=== PATIENT | female | born 1985 | race Caucasian/White ===

== ENCOUNTER 2016-08-30 20:06 | Emergency (ER) | payer OTHER ==
[~2016-08-30 20:06] MED LIST: ACET-704 PO; ALPR0.5T PO; DOXY100C2 PO; HYDR-971 PO; HYDR1TAB12 PO; IBUP200T43 PO; ONDA4TAB7 PO; PENI500T PO; RANI150T6 PO; TRAM-48 PO
[2016-08-30 20:45] VITALS: BP 127/72
[2016-08-30 22:22] LABS: BASO # 0.1 x10^3/uL (0.0-0.2); BASO % 1 % (0-3); EOS # 0.1 x10^3/uL (0.0-0.7); EOS % 2 % (0-3); HEMATOCRIT 37.7 % (36.0-47.0); HEMOGLOBIN 13.1 g/dL (12.0-15.5); LYMPH # 2.2 x10^3/uL (1.0-4.8); LYMPH % 33 % (24-48); MEAN CORPUSCULAR HEMOGLOBIN 32 pg (25-35); MEAN CORPUSCULAR HGB CONC 35 g/dL (31-37); MEAN CORPUSCULAR VOLUME 91 fL (79-100); MONO # 0.4 x10^3/uL (0.0-1.1); MONO % 6 % (0-9); NEUT # 3.8 x10^3uL (1.8-7.7); NEUT % 58 % (31-73); PLATELET COUNT 258 x10^3/uL (140-400); RED BLOOD COUNT 4.15 x10^6/uL (3.50-5.40); RED CELL DISTRIBUTION WIDTH 12.5 % (11.5-14.5); WHITE BLOOD COUNT 6.5 x10^3/uL (4.0-11.0)
[2016-08-30 22:24] LABS: CALCIUM 9.3 mg/dL (8.5-10.1); CREATININE 0.7 mg/dL (0.6-1.0); GFR 97.6; POTASSIUM 3.8 mmol/L (3.5-5.1)
--- NOTE | 2016-08-31 05:46 | ED.ADGEN ---
Past History Past Medical History: No Pertinent History Past Surgical History: Cholecystectomy, Other Smoking: Quit Less Than 1 Year Alcohol Use: None Drug Use: None Adult General Chief Complaint Chief Complaint Vaginal bleeding HPI HPI Patient is a 30-year-old female presents with vaginal bleeding. Patient states she was started vaginal bleeding starting 3 days ago with heavy vaginal bleeding earlier today and passed large clots prior to ED arrival. Reports feeling queasy and lightheaded. Denies chest pain shortness of breath, abdominal pain. Patient's last menstrual period was 3 weeks ago. Her periods have been regular and light. She states this evening at her symptoms feel like a heavy period. Patient had negative test earlier this week. No other acute symptoms or complaints. Review of Systems Review of Systems Review symptoms as per history of present illness. All other review symptoms are negative. Allergies Allergies Allergies Coded Allergies Type Severity Reaction Last Updated Verified Sulfa (Sulfonamide Antibiotics) Allergy Severe Anaphylaxis 05/23/15 Yes sulfamethoxazole Allergy Severe Anaphylaxis 05/23/15 Yes trimethoprim Allergy Severe Anaphylaxis 05/23/15 Yes hydrocodone Allergy Unknown Palpitations 04/14/16 Yes ibuprofen Allergy Unknown Palpitations 04/14/16 Yes Physical Exam Physical Exam Constitutional: Well developed, well nourished, no acute distress. HENT: Normocephalic, atraumatic, bilateral external ears normal, oropharynx moist, no oral exudates, nose normal. Eyes: PERRLA, EOMI, conjunctiva normal. Neck: Normal range of motion. Cardiovascular:Heart rate regular rhythm, no murmur. Lungs & Thorax: Bilateral breath sounds clear to auscultation. Abdomen: Bowel sounds normal, soft, no tenderness. Skin: Warm, dry, no erythema, no rash. Back: No tenderness, no CVA tenderness. Extremities: No tenderness. Neurologic: Alert and oriented X 3, normal motor function, normal sensory function, no focal deficits noted. Psychologic: Affect normal, judgement normal, mood normal. Current Patient Data Vital Signs Vital Signs Date Time Temp Pulse Resp B/P (MAP) Pulse Ox O2 Delivery O2 Flow Rate FiO2 08/30/16 20:45 98.5 75 20 100 Room Air Lab Results Laboratory Tests Test 08/30/16 21:53 White Blood Count 6.5 x10^3/uL (4.0-11.0) Red Blood Count 4.15 x10^6/uL (3.50-5.40) Hemoglobin 13.1 g/dL (12.0-15.5) Hematocrit 37.7 % (36.0-47.0) Mean Corpuscular Volume 91 fL (79-100) Mean Corpuscular Hemoglobin 32 pg (25-35) Mean Corpuscular Hemoglobin Concent 35 g/dL (31-37) Red Cell Distribution Width 12.5 % (11.5-14.5) Platelet Count 258 x10^3/uL (140-400) Neutrophils (%) (Auto) 58 % (31-73) Lymphocytes (%) (Auto) 33 % (24-48) Monocytes (%) (Auto) 6 % (0-9) Eosinophils (%) (Auto) 2 % (0-3) Basophils (%) (Auto) 1 % (0-3) Neutrophils # (Auto) 3.8 x10^3uL (1.8-7.7) Lymphocytes # (Auto) 2.2 x10^3/uL (1.0-4.8) Monocytes # (Auto) 0.4 x10^3/uL (0.0-1.1) Eosinophils # (Auto) 0.1 x10^3/uL (0.0-0.7) Basophils # (Auto) 0.1 x10^3/uL (0.0-0.2) Maternal Serum HCG Beta Subunit 1 mIU/mL (0-6) Sodium Level 141 mmol/L (136-145) Potassium Level 3.8 mmol/L (3.5-5.1) Chloride Level 104 mmol/L (98-107) Carbon Dioxide Level 29 mmol/L (21-32) Anion Gap 8 (6-14) Blood Urea Nitrogen 8 mg/dL (7-20) Creatinine 0.7 mg/dL (0.6-1.0) Estimated GFR (Cockcroft-Gault) 97.6 Glucose Level 89 mg/dL (70-99) Calcium Level 9.3 mg/dL (8.5-10.1) EKG EKG [] Radiology/Procedures Radiology/Procedures [] Course & Med Decision Making Course & Med Decision Making Pertinent Labs and Imaging studies reviewed. (See chart for details) [Patient's abdomen/pelvis nontender on evaluation. Vital signs are stable. Lab work is reassuring. Patient states vaginal bleeding has improved. Recommendations are watchful waiting and MANIFOLD OPERATOR follow up. Return precautions reviewed.] Final Impression Final Impression [1 dysfunctional uterine bleeding] Problems: Dragon Disclaimer Dragon Disclaimer This electronic medical record was generated, in whole or in part, using a voice recognition dictation system. IRIS COMBS DO Aug 31, 2016 05:46
== END 2016-08-30 22:55 | disposition home or self-care (01) ==
LOC: ER 20:06
DX: N93.8 Other specified abnormal uterine and vaginal bleeding (principal); F17.200 Nicotine dependence, unspecified, uncomplicated; Z88.2 Allergy status to sulfonamides; Z88.1 Allergy status to other antibiotic agents; Z88.6 Allergy status to analgesic agent; Z88.5 Allergy status to narcotic agent
CPT/HCPCS: 36415; 80048; 84702; 85027; 99284

== ENCOUNTER 2016-09-17 16:18 | Emergency (ER) | payer OTHER ==
[2016-09-17 16:33] VITALS: BP 119/73
--- NOTE | 2016-09-17 16:46 | PHYS DOC ---
General Chief Complaint: CHEST PAIN Stated Complaint: CHEST PAIN Time Seen by MD: 16:25 Source: patient Exam Limitations: no limitations Problems: History of Present Illness Initial Comments Pt is 30/F to ED c/o drug reaction. Pt states that she broke a tooth last night and found a tylenol #3 prescription that had been written her in the past. She says she took one tablet on an empty stomach one hour prior to ED arrival. After about 20 minutes she says she developed severe epigastric pain radiating to her back with nausea and severe anxiety. She says she has had reactions like this in the past from ibuprofen and hydrocodone so she lists them as allergies. She says she hasn't taken Tylenol 3 before and wasn't aware it was similar to hydrocodone. She denies history of facial swelling/sob related to these meds in past, she denies sob/gallegos/dysphagia currently. On arrival she is crying she is writhing as if in severe pain exclaiming that she feels like she is going to . History and physical is difficult due to the patient's agitation. Despite her symptoms and physical activity her ED vital signs: 97.6, 67, 16, 119/73, 98% on room air Timing/Duration: 1/2 hour Severity: severe Modifying Factors: worse with medication Associated Symptoms: chest pain, nausea/vomiting, other Allergies: Coded Allergies: Sulfa (Sulfonamide Antibiotics) (Verified Allergy, Severe, Anaphylaxis, ) sulfamethoxazole (Verified Allergy, Severe, Anaphylaxis, 05/23/15) trimethoprim (Verified Allergy, Severe, Anaphylaxis, 05/23/15) hydrocodone (Verified Allergy, Unknown, Palpitations, 04/14/16) ibuprofen (Verified Allergy, Unknown, Palpitations, 04/14/16) Past Medical History Medical History: no pertinent history, other Surgical History: noncontributory, cholecystectomy (breast) Social History Smoker: cigarettes Alcohol: occasionally Drugs: none Review of Systems Constitutional: denies chills, denies diaphoresis, denies fever, denies malaise EENTM: see HPI Respiratory: see HPI, denies cough, denies shortness of breath, denies wheezing Cardiovascular: see HPI, denies palpitations, denies syncope Gastrointestinal: abdominal pain, denies diarrhea, nausea, denies vomiting Musculoskeletal: denies back pain, denies joint swelling, denies neck pain Psychiatric/Neurological: denies headache, denies numbness, denies paresthesia Physical Exam General Appearance: WD/WN, moderate distress Eyes: bilateral eye normal inspection, bilateral eye PERRL, bilateral eye EOMI Ear, Nose, Throat: hearing grossly normal, normal ENT inspection, normal pharynx Neck: non-tender, supple Respiratory: normal breath sounds, no respiratory distress Cardiovascular: normal peripheral pulses, regular rate, rhythm Gastrointestinal: non tender, soft Back: no CVA tenderness, no vertebral tenderness Extremities: non-tender, normal inspection Neurologic/Psychiatric: radio message router II-XII nml as tested, no motor/sensory deficits, alert, oriented x 3, other (extremely anxious and agitated, exclaiming that she' s going to ) Skin: normal color, warm/dry Orders, Labs, Meds EKG: NSR 62 bpm, mild T flattening no STEMI criteria. Interpreted by me. 1733: Pt rechecked, she is feeling much better after solumedrol/fentanyl/ ativan. Reassuring workup, K+ 3.1 (40meq given PO) I discussed GI intolerance to medications and the likelihood that she should seek alternatives other than opiates in the future. I discussed hypokalemia and its treatment and need for recheck. Patient expressed agreement and understanding with the treatment plan. Departure Time of Disposition: 17:34 Disposition: 01 HOME, SELF-CARE Diagnosis: adverse medication reaction, hypokalemia Condition: IMPROVED Patient Instructions: Drug Reaction, GI Intolerance, Hypokalemia Additional Instructions: Avoid codeine and other medications listed on your drug allergy list. Aggressive hydration with gatorade, water. Multivitamin daily. Eat one banana twice daily until doctor follow up. Rx: KCL 20 meq, take one every 8 hours for two days. Follow up with your doctor for potassium recheck in 1-2 days. Return to ED with new or changing symptoms. CORETTA FUENTES DO Sep 17, 2016 16:46
[2016-09-17 16:54] LABS: BASO # 0.1 x10^3/uL (0.0-0.2); BASO % 1 % (0-3); EOS # 0.2 x10^3/uL (0.0-0.7); EOS % 2 % (0-3); HEMATOCRIT 37.5 % (36.0-47.0); HEMOGLOBIN 12.8 g/dL (12.0-15.5); LYMPH # 2.9 x10^3/uL (1.0-4.8); LYMPH % 32 % (24-48); MEAN CORPUSCULAR HEMOGLOBIN 31 pg (25-35); MEAN CORPUSCULAR HGB CONC 34 g/dL (31-37); MEAN CORPUSCULAR VOLUME 91 fL (79-100); MONO # 0.6 x10^3/uL (0.0-1.1); MONO % 7 % (0-9); NEUT # 5.2 x10^3uL (1.8-7.7); NEUT % 58 % (31-73); PLATELET COUNT 276 x10^3/uL (140-400); RED BLOOD COUNT 4.12 x10^6/uL (3.50-5.40); RED CELL DISTRIBUTION WIDTH 12.6 % (11.5-14.5)
[2016-09-17] MEDS ORDERED: methylPREDNISolone SOD SUCC PF 125 MG/2 ML VIAL. IV ONE (17:00)
[2016-09-17] MEDS ORDERED: ONDANSETRON PF 4 MG/2 ML VIAL. IV ONE (17:00)
[2016-09-17] MEDS ORDERED: fentaNYL PF 100 MCG/2 ML VIAL IV ONE (17:00)
[2016-09-17] MEDS ORDERED: LORazepam 2 MG/ML VIAL IV ONE (17:00)
[2016-09-17 17:02] LABS: ALBUMIN 4.3 g/dL (3.4-5.0); ALBUMIN/GLOBULIN RATIO 1.5 (1.0-1.7); CALCIUM 8.9 mg/dL (8.5-10.1); CREATININE 0.8 mg/dL (0.6-1.0); GFR 83.7; POTASSIUM 3.1 mmol/L (3.5-5.1); TOTAL BILIRUBIN 0.5 mg/dL (0.2-1.0); TOTAL PROTEIN 7.2 g/dL (6.4-8.2)
[2016-09-17] MEDS ORDERED: POTASSIUM CHLORIDE 20 MEQ/15 ML ORAL LIQUID. PO ONE (17:45)
--- NOTE | 2016-09-19 07:01 | EKG ---
[address] [address] Test Date: 2016-09-17 Test Time: 16:26:31 Pat Name: FRANCESCO WHITEHEAD Department: Room: Gender: F Retail Associate: : 1985 Requested By: CORETTA FUENTES Order Number: [id number] Reading MD: Measurements Intervals [place] Rate: 62 P: 58 ME: 210 QRS: 62 QRSD: 90 T: 31 QT: 412 QTc: 420 Interpretive Statements SINUS RHYTHM QRS(T) CONTOUR ABNORMALITY CONSIDER ANTEROLATERAL MYOCARDIAL DAMAGE RI6.01 Unconfirmed report No previous ECG available for comparison
== END 2016-09-17 17:45 | disposition home or self-care (01) ==
LOC: ER 16:18
DX: T39.1X5A Adverse effect of 4-Aminophenol derivatives, initial encounter (principal); E87.6 Hypokalemia; F17.210 Nicotine dependence, cigarettes, uncomplicated; Z88.2 Allergy status to sulfonamides; Z88.1 Allergy status to other antibiotic agents; Z88.6 Allergy status to analgesic agent; Y92.89 Other specified places as the place of occurrence of the external cause
CPT/HCPCS: 36415; 80053; 85025; 96374; 96375; 99285; J2060; J2405; J2930; J3010

== ENCOUNTER 2017-02-07 12:24 | Emergency (ER) | payer OTHER ==
[~2017-02-07] VITALS: Ht 170.2 cm; Wt 67.1 kg
[~2017-02-07 12:24] MED LIST changes: -IBUP200T43 PO; +IBUP200T44 PO
[2017-02-07] MEDS ORDERED: IV NORMAL SALINE 1,000ML 1,000 ML IV SCH (12:50)
[2017-02-07 13:20] LABS: BASO # 0.1 x10^3/uL (0.0-0.2); BASO % 2 % (0-3); EOS # 0.1 x10^3/uL (0.0-0.7); EOS % 3 % (0-3); HEMATOCRIT 36.5 % (36.0-47.0); HEMOGLOBIN 12.6 g/dL (12.0-15.5); LYMPH # 1.4 x10^3/uL (1.0-4.8); LYMPH % 30 % (24-48); MEAN CORPUSCULAR HEMOGLOBIN 31 pg (25-35); MEAN CORPUSCULAR HGB CONC 35 g/dL (31-37); MEAN CORPUSCULAR VOLUME 91 fL (79-100); MONO # 0.4 x10^3/uL (0.0-1.1); MONO % 8 % (0-9); NEUT # 2.7 x10^3uL (1.8-7.7); NEUT % 58 % (31-73); PLATELET COUNT 266 x10^3/uL (140-400); RED BLOOD COUNT 4.04 x10^6/uL (3.50-5.40); RED CELL DISTRIBUTION WIDTH 12.7 % (11.5-14.5); WHITE BLOOD COUNT 4.7 x10^3/uL (4.0-11.0)
[2017-02-07 13:34] LABS: ALBUMIN 4.2 g/dL (3.4-5.0); ALBUMIN/GLOBULIN RATIO 1.4 (1.0-1.7); CALCIUM 9.1 mg/dL (8.5-10.1); CREATININE 0.6 mg/dL (0.6-1.0); GFR 115.9; POTASSIUM 3.7 mmol/L (3.5-5.1); TOTAL BILIRUBIN 0.2 mg/dL (0.2-1.0); TOTAL PROTEIN 7.2 g/dL (6.4-8.2)
[2017-02-07 13:35] LABS: BACTERIA,URINE 0 /HPF (0-FEW); BILIRUBIN,URINE NEG (NEG); CLARITY,URINE HAZY; COLOR,URINE STRAW; GLUCOSE,URINE NEG (NEG); NITRITE,URINE NEG (NEG); RBC,URINE 0 /HPF (0-2); SQUAMOUS EPITHELIAL CELL,UR OCC /LPF; UROBILINOGEN,URINE 0.2 mg/dL (0.2 mg/dL); WBC,URINE 0 /HPF (0-4)
--- NOTE | 2017-02-07 13:49 | RAD ---
Ultrasound pelvis on 04/24/2017 Indication: History of ovarian cyst with left-sided abdominal pain. Comparison: CT abdomen/pelvis 04/01/2015 Technique: Multiple sonographic images of the pelvis were obtained utilizing transabdominal and transvaginal imaging. Grayscale, color Doppler and spectral waveform analysis were utilized. Findings: There is measures 7.5 x 5.6 x 4.0 cm. Endometrium is within normal limits measuring 7 mm. Junctional zone appears normal. No suspicious uterine masses are identified. The right ovary measures 3.2 x 2.1 x 1.8 cm and is within normal limits. Arterial and venous waveform are identified at the time of imaging. The left ovary measures 3.9 x 2.1 x 2.0 cm. Follicles are identified within the left ovary measuring up to 1.5 cm. No suspicious adnexal mass. Arterial and venous waveform are identified at the time of imaging. No free fluid is identified within the pelvis. Impression: Nonenlarged ovaries with perfusion noted bilaterally at the time of imaging.
[2017-02-07 13:55] LABS: U PREG PATIENT NEGATIVE (NEG)
[2017-02-07] MEDS ORDERED: KETOROLAC 30 MG/ML VIAL. IV ONE (14:00)
[2017-02-07] MEDS ORDERED: TRAM-48 PO (14:37)
--- NOTE | 2017-02-07 14:37 | PHYS DOC ---
Past History Past Medical History: No Pertinent History Past Surgical History: Cholecystectomy, Other Smoking: Quit Less Than 1 Year Alcohol Use: None Drug Use: None Adult General Chief Complaint Chief Complaint: ABDOMINAL PAIN HPI HPI 31-year-old male patient complaining of left lower quadrant pain for one week as a sharp pain with radiation to left side of her abdomen and back patient complaining of LEFT-sided of her abdomen since yesterday and nausea without vomiting. Patient complaining of one or 2 episodes of diarrhea a day for the last 4 days after she had episodes of constipation. Patient states she was told that she had ovarian cyst and had an appointment with a "ovarian specialist" on 02/09/17. Patient denies urinary symptom and states her LMP was 5 days ago. Review of Systems Review of Systems Constitutional: Denies fever or chills [] Eyes: Denies change in visual acuity, redness, or eye pain [] HENT: Denies nasal congestion or sore throat [] Respiratory: Denies cough or shortness of breath [] Cardiovascular: No additional information not addressed in HPI [] GI: Reports abdominal pain, nausea, diarrhea [] : Denies dysuria or hematuria [] Musculoskeletal: Denies back pain or joint pain [] Integument: Denies rash or skin lesions [] Neurologic: Denies headache, focal weakness or sensory changes [] Endocrine: Denies polyuria or polydipsia [] All other systems were reviewed and found to be within normal limits, except as documented in this note. Current Medications Current Medications Current Medications Medications (Trade) Dose Ordered Sig/[place] Start Time Stop Time Status Last Admin Dose Admin Ketorolac Tromethamine (Toradol) 30 mg 1X ONCE 02/07/17 14:00 02/07/17 14:02 DC 02/07/17 14:14 30 MG Sodium Chloride 1,000 ml @ 1,000 mls/hr Q1H 02/07/17 12:50 02/07/17 13:49 DC 02/07/17 13:51 1,000 MLS/HR Allergies Allergies Allergies Coded Allergies Type Severity Reaction Last Updated Verified Sulfa (Sulfonamide Antibiotics) Allergy Severe Anaphylaxis 05/23/15 Yes sulfamethoxazole Allergy Severe Anaphylaxis 05/23/15 Yes trimethoprim Allergy Severe Anaphylaxis 05/23/15 Yes hydrocodone Allergy Unknown Palpitations 04/14/16 Yes ibuprofen Allergy Unknown Palpitations 3/10/17 Yes Physical Exam Physical Exam Constitutional: Well developed, well nourished, mild distress, non-toxic appearance. [] HENT: Normocephalic, atraumatic, bilateral external ears normal, oropharynx moist, no oral exudates, nose normal. [] Eyes: PERRLA, EOMI, conjunctiva normal, no discharge. [] Neck: Normal range of motion, no tenderness, supple, no stridor. [] Cardiovascular:Heart rate regular rhythm, no murmur [] Lungs & Thorax: Bilateral breath sounds clear to auscultation [] Abdomen: Bowel sounds normal, soft, no tenderness, no masses, no pulsatile masses, no abdominal, no wall defect or hernia. [] Skin: Warm, dry, no erythema, no rash. [] Back: No tenderness, no CVA tenderness. [] Extremities: No tenderness, no cyanosis, no clubbing, ROM intact, no edema. [] Neurologic: Alert and oriented X 3, normal motor function, normal sensory function, no focal deficits noted. [] Psychologic: Affect normal, judgement normal, mood normal. [] Current Patient Data Lab Results Laboratory Tests Test 02/07/17 13:00 White Blood Count 4.7 x10^3/uL (4.0-11.0) Red Blood Count 4.04 x10^6/uL (3.50-5.40) Hemoglobin 12.6 g/dL (12.0-15.5) Hematocrit 36.5 % (36.0-47.0) Mean Corpuscular Volume 91 fL (79-100) Mean Corpuscular Hemoglobin 31 pg (25-35) Mean Corpuscular Hemoglobin Concent 35 g/dL (31-37) Red Cell Distribution Width 12.7 % (11.5-14.5) Platelet Count 266 x10^3/uL (140-400) Neutrophils (%) (Auto) 58 % (31-73) Lymphocytes (%) (Auto) 30 % (24-48) Monocytes (%) (Auto) 8 % (0-9) Eosinophils (%) (Auto) 3 % (0-3) Basophils (%) (Auto) 2 % (0-3) Neutrophils # (Auto) 2.7 x10^3uL (1.8-7.7) Lymphocytes # (Auto) 1.4 x10^3/uL (1.0-4.8) Monocytes # (Auto) 0.4 x10^3/uL (0.0-1.1) Eosinophils # (Auto) 0.1 x10^3/uL (0.0-0.7) Basophils # (Auto) 0.1 x10^3/uL (0.0-0.2) Urine Collection Type Unknown Urine Color Straw Urine Clarity Hazy Urine pH 6.5 Urine Specific [place] <=1.005 Urine Protein Neg (NEG-TRACE) Urine Glucose (UA) Neg mg/dL (NEG) Urine Ketones (Stick) Neg mg/dL (NEG) Urine Blood Neg (NEG) Urine Nitrite Neg (NEG) Urine Bilirubin Neg (NEG) Urine Urobilinogen Dipstick 0.2 mg/dL (0.2 mg/dL) Urine Leukocyte Esterase Neg (NEG) Urine RBC 0 /HPF (0-2) Urine WBC 0 /HPF (0-4) Urine Squamous Epithelial Cells Occ /LPF Urine Bacteria 0 /HPF (0-FEW) Urine Test Negative (NEG) Sodium Level 142 mmol/L (136-145) Potassium Level 3.7 mmol/L (3.5-5.1) Chloride Level 105 mmol/L (98-107) Carbon Dioxide Level 28 mmol/L (21-32) Anion Gap 9 (6-14) Blood Urea Nitrogen 7 mg/dL (7-20) Creatinine 0.6 mg/dL (0.6-1.0) Estimated GFR (Cockcroft-Gault) 115.9 BUN/Creatinine Ratio 12 (6-20) Glucose Level 87 mg/dL (70-99) Calcium Level 9.1 mg/dL (8.5-10.1) Total Bilirubin 0.2 mg/dL (0.2-1.0) Aspartate Amino Transferase (AST) 10 U/L (15-37) L Alanine Aminotransferase (ALT) 17 U/L (14-59) Alkaline Phosphatase 66 U/L (46-116) Total Protein 7.2 g/dL (6.4-8.2) Albumin 4.2 g/dL (3.4-5.0) Albumin/Globulin Ratio 1.4 (1.0-1.7) Lipase 92 U/L (73-393) EKG EKG [] Radiology/Procedures Radiology/Procedures [] Course & Med Decision Making Course & Med Decision Making Pertinent Labs and Imaging studies reviewed. (See chart for details) Evaluation of patient in ER showed 31-year-old female patient with complaining of abdominal pain for 1 week and episodes of nausea and diarrhea. Patient had unremarkable physical exam and labs and pelvic ultrasound but she was not convinced with normal test results and states she T something is wrong with her. I offered a CT of abdomen and pelvis but patient decided to leave and follow with her appointment on February 09. [] Dragon Disclaimer Dragon Disclaimer This electronic medical record was generated, in whole or in part, using a voice recognition dictation system. Departure Departure: Impression: Primary Impression: Left lower quadrant pain Additional Impression: Viral gastroenteritis Disposition: HOME, SELF-CARE (At 1425) Condition: IMPROVED Referrals: ALISON MORRISON DO, [facility] (PCP) Patient Instructions: Abdominal Pain, Viral Gastroenteritis Additional Instructions: Take plenty of liquids Follow-up with your physician as a scheduled on 02/09/17 Return to emergency room as needed Scripts Tramadol Hcl (ULTRAM) 50 Mg Tablet 50 MG PO PRN Q6HRS Y for PAIN, #14 TAB Prov: ARIAN LVOE MD 02/07/17 Problem Qualifiers ARIAN LOVE MD Feb 07, 2017 14:37
[2017-02-07 15:26] VITALS: BP 138/83
== END 2017-02-07 14:40 | disposition home or self-care (01) ==
LOC: ER 12:24
DX: A08.4 Viral intestinal infection, unspecified (principal); Z87.891 Personal history of nicotine dependence; Z90.49 Acquired absence of other specified parts of digestive tract; Z88.2 Allergy status to sulfonamides; Z88.1 Allergy status to other antibiotic agents; Z88.6 Allergy status to analgesic agent; Z88.5 Allergy status to narcotic agent
CPT/HCPCS: 36415; 76830; 76856; 80053; 81001; 81025; 83690; 85025; 96361; 96374; 99285; J1885; J7030

== ENCOUNTER 2017-08-30 12:07 | Emergency (ER) | payer OTHER ==
[~2017-08-30] VITALS: Ht 165.1 cm; Wt 58.1 kg
[~2017-08-30 12:07] MED LIST changes: +RANI150T21 PO; -RANI150T6 PO
[2017-08-30 12:10] VITALS: BP 115/65
[2017-08-30 12:46] LABS: CLARITY,URINE CLOUDY; COLOR,URINE STRAW; GLUCOSE,URINE NEG (NEG)
[2017-08-30 12:47] LABS: BACTERIA,URINE 0 /HPF (0-FEW); BILIRUBIN,URINE NEG (NEG); NITRITE,URINE NEG (NEG); RBC,URINE >40 /HPF (0-2); SQUAMOUS EPITHELIAL CELL,UR OCC /LPF; UROBILINOGEN,URINE 0.2 mg/dL (0.2 mg/dL); WBC,URINE 0 /HPF (0-4)
[2017-08-30] MEDS ORDERED: FERR325T14 PO (13:20)
[2017-08-30] MEDS ORDERED: NAPR-683 PO (13:20)
--- NOTE | 2017-08-30 13:20 | PHYS DOC ---
Past History Past Medical History: No Pertinent History Past Surgical History: No Surgical History Smoking: Non-smoker, Quit Less Than 1 Year Alcohol Use: None Drug Use: None Adult General Chief Complaint Chief Complaint: VAGINAL BLEEDING HPI HPI 31-year-old female patient A1 states she had a normal menstruation that finished 2 weeks ago and she started to have vaginal bleeding 5 days ago as a heavy bleeding with passing blood clots and lower abdominal cramping pain intermittently during the last 5 days. Patient complaining of mild dizziness without palpitation, shortness of breath. Patient denies using contraception. Patient states she has appointment with her MEDIA SERVICES DIRECTOR tomorrow but was recommended to come to ER if she has heavy bleeding. Review of Systems Review of Systems Constitutional: Denies fever or chills [] Eyes: Denies change in visual acuity, redness, or eye pain [] HENT: Denies nasal congestion or sore throat [] Respiratory: Denies cough or shortness of breath [] Cardiovascular: No additional information not addressed in HPI [] GI: Denies abdominal pain, nausea, vomiting, bloody stools or diarrhea [] : Denies dysuria or hematuria [] Musculoskeletal: Denies back pain or joint pain [] Integument: Denies rash or skin lesions [] Neurologic: Denies headache, focal weakness or sensory changes [] Endocrine: Denies polyuria or polydipsia [] All other systems were reviewed and found to be within normal limits, except as documented in this note. Allergies Allergies Allergies Coded Allergies Type Severity Reaction Last Updated Verified Sulfa (Sulfonamide Antibiotics) Allergy Severe Anaphylaxis 05/23/15 Yes sulfamethoxazole Allergy Severe Anaphylaxis 05/23/15 Yes trimethoprim Allergy Severe Anaphylaxis 05/23/15 Yes codeine Allergy Intermediate GI INTOLERANCE/ANXIETY 07/30/17 Yes hydrocodone Allergy Intermediate Palpitations 07/30/17 Yes ibuprofen Allergy Intermediate Palpitations 07/30/17 Yes Physical Exam Physical Exam Constitutional: Well developed, well nourished, no acute distress, non-toxic appearance. [] HENT: Normocephalic, atraumatic, bilateral external ears normal, oropharynx moist, no oral exudates, nose normal. [] Eyes: PERRLA, EOMI, conjunctiva normal, no discharge. [] Neck: Normal range of motion, no tenderness, supple, no stridor. [] Cardiovascular:Heart rate regular rhythm, no murmur [] Lungs & Thorax: Bilateral breath sounds clear to auscultation [] Abdomen: Bowel sounds normal, soft, no tenderness, no masses, no pulsatile masses. Vaginal exam with present of swim instructor showed normal external genital, mild to moderate vaginal bleeding with few small clots, no adnexal tenderness or palpable mass [] Skin: Warm, dry, no erythema, no rash. [] Back: No tenderness, no CVA tenderness. [] Extremities: No tenderness, no cyanosis, no clubbing, ROM intact, no edema. [] Neurologic: Alert and oriented X 3, normal motor function, normal sensory function, no focal deficits noted. [] Psychologic: Affect normal, judgement normal, mood normal. [] Current Patient Data Vital Signs Vital Signs Date Time Temp Pulse Resp B/P (MAP) Pulse Ox O2 Delivery O2 Flow Rate FiO2 08/30/17 12:10 75 22 100 Room Air Lab Results Laboratory Tests Test 08/30/17 11:46 08/30/17 12:20 POC Urine HCG, Qualitative hcg negative (Negative) Urine Collection Type Unknown Urine Color Straw Urine Clarity Cloudy Urine pH 6.5 Urine Specific [place] 1.010 Urine Protein Neg (NEG-TRACE) Urine Glucose (UA) Neg mg/dL (NEG) Urine Ketones (Stick) Neg mg/dL (NEG) Urine Blood Large (NEG) Urine Nitrite Neg (NEG) Urine Bilirubin Neg (NEG) Urine Urobilinogen Dipstick 0.2 mg/dL (0.2 mg/dL) Urine Leukocyte Esterase Neg (NEG) Urine RBC >40 /HPF (0-2) Urine WBC 0 /HPF (0-4) Urine Squamous Epithelial Cells Occ /LPF Urine Bacteria 0 /HPF (0-FEW) EKG EKG [] Radiology/Procedures Radiology/Procedures [] Course & Med Decision Making Course & Med Decision Making Pertinent Labs reviewed. (See chart for details) Evolution of patient in ER showed 32-year-old male patient with complaining of heavy vaginal bleeding intermittently for the last 5 days. Patient had unremarkable physical exam without Cartia and pallor. Patient didn't want to have blood test or ultrasound wanted to follow-up with her MEDIA SERVICES DIRECTOR tomorrow. Dragon Disclaimer Dragon Disclaimer This electronic medical record was generated, in whole or in part, using a voice recognition dictation system. Departure Departure: Impression: Primary Impression: Abnormal vaginal bleeding Additional Impression: Menometrorrhagia Disposition: HOME, SELF-CARE (at 1317) Condition: STABLE Referrals: ALISON MORRISON DO, [facility] (PCP) Patient Instructions: Abnormal Uterine Bleeding Additional Instructions: Drink plenty of liquids Follow-up with your MEDIA SERVICES DIRECTOR as scheduled tomorrow Return to ER if not getting better Scripts Naproxen (NAPROSYN) 500 Mg Tablet 1 TAB PO BID, #20 TAB Prov: ARIAN LOVE MD 08/30/17 Ferrous Sulfate (FERROUS SULFATE) 325 Mg Tablet 1 TAB PO BID, #60 TAB 3 Refills Prov: ARIAN LOVE MD 08/30/17 Problem Qualifiers ARIAN LOVE MD Aug 30, 2017 13:20
== END 2017-08-30 13:30 | disposition home or self-care (01) ==
LOC: ER 12:07
DX: N92.1 Excessive and frequent menstruation with irregular cycle (principal); Z87.891 Personal history of nicotine dependence; Z88.2 Allergy status to sulfonamides; Z88.1 Allergy status to other antibiotic agents; Z88.5 Allergy status to narcotic agent; Z88.6 Allergy status to analgesic agent
CPT/HCPCS: 81001; 81025; 99283

== ENCOUNTER 2018-04-20 17:44 | Emergency (ER) | payer OTHER ==
[~2018-04-20] VITALS: Ht 165.1 cm; Wt 71.4 kg
[2018-04-20 17:44] VITALS: BP 116/67
[~2018-04-20 17:44] MED LIST changes: +FERR325T14 PO; +HYDR-3165 PO; -HYDR-971 PO; -HYDR1TAB12 PO; +HYDR1TAB13 PO; +NAPR-683 PO
--- NOTE | 2018-04-20 18:01 | EKG ---
[address] [address] Test Date: 2018-04-20 Test Time: 17:54:41 Pat Name: FRANCESCO WHITEHEAD Department: Room: Gender: F Sales Solutions Associate: GERHARD : 1985 Requested By: MARTINA HUA Order Number: [id number] Reading MD: Buddy Plummer MD Measurements Intervals [place] Rate: 65 P: 65 DC: 190 QRS: 62 QRSD: 90 T: 31 QT: 402 QTc: 419 Interpretive Statements SINUS RHYTHM Electronically Signed On 04-25-2018 15:03:26 CDT by Buddy Plummer MD
[2018-04-20] MEDS ORDERED: LIDO:MAALOX 1:1 20 ML SINGLE DOSE. PO ONE (18:15)
[2018-04-20] MEDS ORDERED: IV NORMAL SALINE 1,000ML 1,000 ML IV SCH (18:46)
[2018-04-20] MEDS ORDERED: ONDANSETRON PF 4 MG/2 ML VIAL. IV ONE (19:00)
[2018-04-20 19:02] LABS: BASO % 1 % (0-3); EOS # 0.1 x10^3/uL (0.0-0.7); EOS % 2 % (0-3); HEMATOCRIT 38.9 % (36.0-47.0); HEMOGLOBIN 13.2 g/dL (12.0-15.5); LYMPH # 0.9 x10^3/uL (1.0-4.8); LYMPH % 24 % (24-48); MEAN CORPUSCULAR HEMOGLOBIN 31 pg (25-35); MEAN CORPUSCULAR HGB CONC 34 g/dL (31-37); MEAN CORPUSCULAR VOLUME 92 fL (79-100); MONO # 0.4 x10^3/uL (0.0-1.1); MONO % 10 % (0-9); NEUT # 2.2 x10^3uL (1.8-7.7); NEUT % 63 % (31-73); PLATELET COUNT 264 x10^3/uL (140-400); RED BLOOD COUNT 4.25 x10^6/uL (3.50-5.40); RED CELL DISTRIBUTION WIDTH 12.5 % (11.5-14.5); WHITE BLOOD COUNT 3.6 x10^3/uL (4.0-11.0)
[2018-04-20 19:11] LABS: ALBUMIN 3.9 g/dL (3.4-5.0); ALBUMIN/GLOBULIN RATIO 1.3 (1.0-1.7); CREATININE 0.6 mg/dL (0.6-1.0); GFR 115.1; MAGNESIUM 2.4 mg/dL (1.8-2.4); POTASSIUM 3.9 mmol/L (3.5-5.1); TOTAL BILIRUBIN 0.3 mg/dL (0.2-1.0); TOTAL PROTEIN 6.9 g/dL (6.4-8.2)
[2018-04-20] MEDS ORDERED: KETOROLAC 30 MG/ML VIAL. ONE (19:30)
[2018-04-20] MEDS ORDERED: diphenhydrAMINE 50 MG/ML VIAL IVP ONE (19:30)
[2018-04-20] MEDS ORDERED: KETOROLAC 30 MG/ML VIAL. IV ONE (19:30)
[2018-04-20] MEDS ORDERED: METOCLOPRAMIDE HCL 10 MG/2 ML VIAL. IV ONE (19:30)
[2018-04-20] MEDS ORDERED: METOCLOPRAMIDE HCL 10 MG/2 ML VIAL. ONE (19:30)
--- NOTE | 2018-04-20 20:17 | RAD ---
AP chest. HISTORY: Chest pain AP view was taken of the chest. Lungs are clear. Heart is normal in size without heart failure. There is no effusion. IMPRESSION: 1. No acute infiltrates. Electronically signed by: Shiv Emanuel MD (04/20/2018 8:13 PM) [id number]
[2018-04-20] MEDS ORDERED: PANTOPRAZOLE IV 40 MG VIAL. IVP ONE (20:45)
[2018-04-20] MEDS ORDERED: CONTRAST GIVEN MC PRN (20:45)
[2018-04-20] MEDS ORDERED: IOHEXOL 350 MG/ML 100 ML VIAL. IV ONE (20:45)
--- NOTE | 2018-04-20 21:45 | RAD ---
CT arteriogram of the chest. HISTORY: Chest pain CT arteriogram of the chest was done using 90 mL Omnipaque 350 contrast. Sagittal and coronal reconstructed images were obtained, a coronal MIP images were reconstructed. Thyroid is homogeneous. There is thymic tissue in the anterior mediastinum with a trace of fluid about the aortic arch. Thoracic aorta is not enlarged. There is no mediastinal adenopathy or pleural effusion. Visualized portions of the liver and spleen are unremarkable. Adrenal glands are normal. Pancreas is normal. Upper poles of the kidneys are unremarkable. There is mild linear atelectasis in the left lung base. There is a calcified granuloma in the left lower lobe. Lungs are otherwise free of infiltrates. This study is negative for evidence of a pulmonary embolus IMPRESSION: 1. Negative for a pulmonary embolus. 2. Trace of fluid about the aortic arch which is nonspecific, there is no other pericardial effusion. 3. No infiltrates or other acute finding. Electronically signed by: Shiv Emanuel MD (04/20/2018 9:41 PM) [id number]
[2018-04-20] MEDS ORDERED: METH4TAB2 PO (22:00)
[2018-04-20] MEDS ORDERED: PANT40TA3 PO (22:00)
--- NOTE | 2018-04-20 22:00 | PHYS DOC ---
Past History Past Medical History: GERD Past Surgical History: Cholecystectomy, Hysterectomy Smoking: Non-smoker, Quit Less Than 1 Year Alcohol Use: Occasionally Drug Use: None Adult General Chief Complaint Chief Complaint: CHEST PAIN HPI HPI Patient is a 32-year-old female who presents with complaint of severe reflux symptoms as well as pleuritic-type chest pain in her right anterior and posterior chest that started earlier today. Patient states that she has been chewing Tums and that has not been helping with her symptoms. She rates the pain in her chest at a 7 out of 10 and describes it as sharp and stabbing. The symptoms in the anterior chest and upper abdomen are burning in nature. Patient states that she has a long history of GERD. She states that usually it is not this severe. Patient does admit to a lot of recent activity, having refinished wiliam of one of her bathrooms at her house. Patient states that pain in the right side of her chest is worsened with certain movements and with deep breathing. Review of Systems Review of Systems Constitutional: Denies fever or chills [] Respiratory: Denies cough or shortness of breath [] Cardiovascular: No additional information not addressed in HPI [] GI: Complains of upper abdominal pain with nausea. Denies vomiting or diarrhea [ ] Musculoskeletal: Complains of right sided mid thoracic to upper thoracic back pain [] All other systems were reviewed and found to be within normal limits, except as documented in this note. Current Medications Current Medications Current Medications Medications (Trade) Dose Ordered Sig/Sh[place]nee Start Time Stop Time Status Last Admin Dose Admin Diphenhydramine HCl (Benadryl) 25 mg 1X ONCE 04/20/18 19:30 04/20/18 19:35 DC 04/20/18 19:34 25 MG Fentanyl Citrate (Fentanyl 2ml Vial) 50 mcg PRN Q15MIN PRN 04/20/18 19:00 04/21/18 18:59 04/20/18 19:06 50 MCG Info (Do NOT chart on this entry -- for MONITORING) 1 each PRN DAILY PRN 04/20/18 20:45 04/22/18 20:44 Iohexol (Omnipaque 350 Mg/ml) 90 ml 1X ONCE 04/20/18 20:45 04/20/18 20:46 DC 04/20/18 21:12 90 ML Ketorolac Tromethamine (Toradol 30mg Vial) 30 mg 1X ONCE 04/20/18 19:30 04/20/18 19:36 DC 04/20/18 19:35 30 MG Metoclopramide HCl (Reglan Vial) 10 mg 1X ONCE 04/20/18 19:30 04/20/18 19:35 DC 04/20/18 19:35 10 MG Multi-Ingredient Mouthwash/Gargle (Gi Cocktail) 20 ml 1X ONCE 04/20/18 18:15 04/20/18 18:17 DC 04/20/18 18:13 20 ML Ondansetron HCl (Zofran) 4 mg 1X ONCE 04/20/18 19:00 04/20/18 19:01 DC 04/20/18 19:01 4 MG Pantoprazole Sodium (Protonix Vial) 40 mg 1X ONCE 04/20/18 20:45 04/20/18 20:46 DC 04/20/18 20:54 40 MG Sodium Chloride 1,000 ml @ 1,000 mls/hr Q1H 04/20/18 18:46 04/20/18 19:45 DC 04/20/18 19:03 1,000 MLS/HR Allergies Allergies Allergies Coded Allergies Type Severity Reaction Last Updated Verified Sulfa (Sulfonamide Antibiotics) Allergy Severe Anaphylaxis 05/23/15 Yes sulfamethoxazole Allergy Severe Anaphylaxis 05/23/15 Yes trimethoprim Allergy Severe Anaphylaxis 05/23/15 Yes codeine Allergy Intermediate GI INTOLERANCE/ANXIETY 07/30/17 Yes hydrocodone Allergy Intermediate Palpitations 07/30/17 Yes ibuprofen Allergy Intermediate Palpitations 07/30/17 Yes Physical Exam Physical Exam Constitutional: Well developed, well nourished, no acute distress, non-toxic appearance. [] HENT: Normocephalic, atraumatic, bilateral external ears normal, oropharynx moist, no oral exudates, nose normal. [] Eyes: PERRLA, EOMI, conjunctiva normal, no discharge. [] Neck: Normal range of motion, no tenderness, supple, no stridor. [] Cardiovascular:Heart rate regular rhythm, no murmur [] Lungs & Thorax: Bilateral breath sounds clear to auscultation [] Abdomen: Bowel sounds normal, soft, with mild epigastric tenderness. [] Skin: Warm, dry, no erythema, no rash. [] Back: There is tenderness to palpation in the area of T8-T10 and around the rib angles this area.. [] Extremities: No tenderness, no cyanosis, no clubbing, ROM intact, no edema. [] Neurologic: Alert and oriented X 3, no focal deficits noted. [] Current Patient Data Vital Signs Vital Signs Date Time Temp Pulse Resp B/P (MAP) Pulse Ox O2 Delivery O2 Flow Rate FiO2 04/20/18 19:36 18 96 04/20/18 19:06 Room Air 04/20/18 17:44 98.1 70 Lab Results Laboratory Tests Test 04/20/18 17:57 White Blood Count 3.6 x10^3/uL (4.0-11.0) L Red Blood Count 4.25 x10^6/uL (3.50-5.40) Hemoglobin 13.2 g/dL (12.0-15.5) Hematocrit 38.9 % (36.0-47.0) Mean Corpuscular Volume 92 fL (79-100) Mean Corpuscular Hemoglobin 31 pg (25-35) Mean Corpuscular Hemoglobin Concent 34 g/dL (31-37) Red Cell Distribution Width 12.5 % (11.5-14.5) Platelet Count 264 x10^3/uL (140-400) Neutrophils (%) (Auto) 63 % (31-73) Lymphocytes (%) (Auto) 24 % (24-48) Monocytes (%) (Auto) 10 % (0-9) H Eosinophils (%) (Auto) 2 % (0-3) Basophils (%) (Auto) 1 % (0-3) Neutrophils # (Auto) 2.2 x10^3uL (1.8-7.7) Lymphocytes # (Auto) 0.9 x10^3/uL (1.0-4.8) L Monocytes # (Auto) 0.4 x10^3/uL (0.0-1.1) Eosinophils # (Auto) 0.1 x10^3/uL (0.0-0.7) Basophils # (Auto) 0.0 x10^3/uL (0.0-0.2) D-Dimer (Fidelina) 1.18 mg/L (0.00-0.50) H Sodium Level 140 mmol/L (136-145) Potassium Level 3.9 mmol/L (3.5-5.1) Chloride Level 105 mmol/L (98-107) Carbon Dioxide Level 27 mmol/L (21-32) Anion Gap 8 (6-14) Blood Urea Nitrogen 6 mg/dL (7-20) L Creatinine 0.6 mg/dL (0.6-1.0) Estimated GFR (Cockcroft-Gault) 115.1 BUN/Creatinine Ratio 10 (6-20) Glucose Level 90 mg/dL (70-99) Calcium Level 8.0 mg/dL (8.5-10.1) L Magnesium Level 2.4 mg/dL (1.8-2.4) Total Bilirubin 0.3 mg/dL (0.2-1.0) Aspartate Amino Transferase (AST) 19 U/L (15-37) Alanine Aminotransferase (ALT) 21 U/L (14-59) Alkaline Phosphatase 79 U/L (46-116) Troponin I Quantitative < 0.017 ng/mL (0-0.055) Total Protein 6.9 g/dL (6.4-8.2) Albumin 3.9 g/dL (3.4-5.0) Albumin/Globulin Ratio 1.3 (1.0-1.7) Lipase 77 U/L (73-393) EKG EKG EKG demonstrates normal sinus rhythm with no ST segment abnormalities.[] Radiology/Procedures Radiology/Procedures [] Impressions: Chest x-ray demonstrates no acute process. PROCEDURE: CT ANGIOGRAPHY CHEST CT arteriogram of the chest. HISTORY: Chest pain CT arteriogram of the chest was done using 90 mL Omnipaque 350 contrast. Sagittal and coronal reconstructed images were obtained, a coronal MIP images were reconstructed. Thyroid is homogeneous. There is thymic tissue in the anterior mediastinum with a trace of fluid about the aortic arch. Thoracic aorta is not enlarged. There is no mediastinal adenopathy or pleural effusion. Visualized portions of the liver and spleen are unremarkable. Adrenal glands are normal. Pancreas is normal. Upper poles of the kidneys are unremarkable. There is mild linear atelectasis in the left lung base. There is a calcified granuloma in the left lower lobe. Lungs are otherwise free of infiltrates. This study is negative for evidence of a pulmonary embolus IMPRESSION: 1. Negative for a pulmonary embolus. 2. Trace of fluid about the aortic arch which is nonspecific, there is no other pericardial effusion. 3. No infiltrates or other acute finding. Electronically signed by: Shiv Emanuel MD (04/20/2018 9:41 PM) [id number] Course & Med Decision Making Course & Med Decision Making Pertinent Labs and Imaging studies reviewed. (See chart for details) [] Dragon Disclaimer Dragon Disclaimer This electronic medical record was generated, in whole or in part, using a voice recognition dictation system. Departure Departure: Impression: Primary Impression: GERD (gastroesophageal reflux disease) Additional Impression: Costochondritis Disposition: HOME, SELF-CARE Condition: STABLE Referrals: ALISON MORRISON DO, M[facility] (PCP) Patient Instructions: Costochondritis, Diet for Gastroesophageal Reflux Disease , Adult, Gastroesophageal Reflux Disease, Adult Scripts Methylprednisolone (MEDROL) 4 Mg Tab.ds.pk 1 PKG PO UD for inflammation, #1 PKG Prov: CHEMA GREENE Jr. DO 04/20/18 Pantoprazole Sodium (PROTONIX) 40 Mg Tablet.dr 1 TAB PO DAILY for GERD, #30 TAB Prov: CHEMA GREENE Jr., DO 04/20/18 Problem Qualifiers Primary Impression: GERD (gastroesophageal reflux disease) Esophagitis presence: esophagitis presence not specified Qualified Codes: K21.9 - Gastro-esophageal reflux disease without esophagitis CHEMA GREENE Jr., DO Apr 20, 2018 22:00
== END 2018-04-20 22:15 | disposition home or self-care (01) ==
LOC: ER 17:44
DX: K21.9 Gastro-esophageal reflux disease without esophagitis (principal); M94.0 Chondrocostal junction syndrome [Tietze]; M54.6 Pain in thoracic spine; Z90.49 Acquired absence of other specified parts of digestive tract; Z90.710 Acquired absence of both cervix and uterus; Z87.891 Personal history of nicotine dependence; Z88.2 Allergy status to sulfonamides; Z88.1 Allergy status to other antibiotic agents; Z88.5 Allergy status to narcotic agent; Z88.6 Allergy status to analgesic agent
CPT/HCPCS: 36415; 71045; 71275; 80053; 83690; 83735; 84484; 85025; 85379; 93005; 96374; 96375; 99284; C9113; J1200; J1885; J2405; J2765; J3010; Q9967; 81001; 96361; J7030

== ENCOUNTER 2019-09-11 11:49 | Emergency (ER) | payer OTHER ==
[~2019-09-11] VITALS: Ht 165.1 cm; Wt 86.7 kg
[~2019-09-11 11:49] MED LIST changes: +METH4TAB2 PO; +PANT40TA3 PO; +RANI-376 PO; -RANI150T21 PO
[2019-09-11] MEDS ORDERED: ONDANSETRON ODT 4 MG TAB.RAPDIS PO ONE (12:15)
--- NOTE | 2019-09-11 12:37 | RAD ---
CHEST AP ONLY History: Chest pain, cough Comparison: June 20, 2018 Findings: Single view of the chest is submitted. There is no dependent pleural fluid, pneumothorax, or radiographically apparent infiltrate. Heart size is stable, within normal limits. Impression: 1. There is no radiographic evidence of acute cardiopulmonary disease. Electronically signed by: Robby Madden MD (09/11/2019 12:34 PM) [id number]
--- NOTE | 2019-09-11 12:41 | PHYS DOC ---
Past History Past Medical History: Anxiety, Depression, Migraines Past Surgical History: Cholecystectomy, Hysterectomy, Oophorectomy, Other Additional Past Surgical Histo: left breast surgery x7; dental Smoking: Non-smoker, Quit Less Than 1 Year Alcohol Use: Rarely Drug Use: None General Adult EDM: Chief Complaint: MULTIPLE COMPLAINTS HPI: HPI: Patient is a 33 year old female who presents for evaluation of multiple complaints. Patient was just in a in [place] for a close family member. She had flown on a plane last night that changed in [place]. Patient is complaining of some chest pain and a recent cough. She had repeated episodes of nausea and vomiting last night. She had a recent fever of 100.3 as well. Patient is having some chest pressure and pain as well. Initial oxygen sats were 93%. Patient has a history of anxiety. She states she is under tremendous stress due to the of her grandmother. Patient is very tearful and anxious on arrival Review of Systems: Review of Systems: Constitutional: has recent fever no chills Eyes: Denies change in visual acuity HENT: Denies nasal congestion or sore throat Respiratory: has cough and shortness of breath Cardiovascular: has chest pain no edema GI: Denies abdominal pain, has nausea, vomiting, but no bloody stools or diarrhea : Denies dysuria Musculoskeletal: has back pain or joint pain Integument: Denies rash Neurologic: has headache with history of migraines, no focal weakness or sensory changes Endocrine: Denies polyuria or polydipsia Lymphatic: Denies swollen glands Psychiatric: has depression and anxiety Heart Score: HEART Score for Chest Pain: HEART Score for Chest Pain Response (Comments) Value History Slighlty/Non-Suspicious 0 ECG Normal 0 Age < 45 0 Risk Factors No Risk Factors 0 Troponin < Normal Limit 0 Total 0 Risk Factors: Risk Factors: DM, Current or recent (<one month) smoker, HTN, HLP, family history of CAD, obesity. Risk Scores: Score 0 - 3: 2.5% MACE over next 6 weeks - Discharge Home Score 4 - 6: 20.3% MACE over next 6 weeks - Admit for Clinical Observation Score 7 - 10: 72.7% MACE over next 6 weeks - Early Invasive Strategies Current Medications: Current Meds: Current Medications Medications (Trade) Dose Ordered Sig/[place]nee Start Time Stop Time Status Last Admin Dose Admin Ondansetron HCl (Zofran Odt) 4 mg 1X ONCE 09/11/19 12:15 09/11/19 12:16 DC Allergies: Allergies: Allergies Coded Allergies Type Severity Reaction Last Updated Verified Sulfa (Sulfonamide Antibiotics) Allergy Severe Anaphylaxis 09/11/19 Yes sulfamethoxazole Allergy Severe Anaphylaxis 09/11/19 Yes trimethoprim Allergy Severe Anaphylaxis 09/11/19 Yes codeine Allergy Intermediate GI INTOLERANCE/ANXIETY 09/11/19 Yes hydrocodone Allergy Intermediate Palpitations 09/11/19 Yes ibuprofen Allergy Intermediate Palpitations 09/11/19 Yes Uncoded Allergies Type Severity Reaction Last Updated Verified narocotics Adverse Reaction Unknown 09/11/19 Physical Exam: PE: Constitutional: Well developed, well nourished, mild acute distress, non-toxic appearance. [] HENT: Normocephalic, atraumatic, bilateral external ears normal, oropharynx moist, no oral exudates, nose normal. [] Eyes: PERRL, EOMI, conjunctiva normal, no discharge. [] Neck: Normal range of motion, no tenderness, supple, no stridor. [] Cardiovascular:Heart rate somewhat tachy but regular rhythm, no murmur [] Lungs & Thorax: Bilateral breath sounds clear to auscultation [] Abdomen: Bowel sounds normal, soft, no tenderness, no masses, no pulsatile masses. [] Skin: Warm, dry, no erythema, no rash. [] Back: No tenderness, no CVA tenderness. [] Extremities: No tenderness, no cyanosis, ROM intact, no edema. [] Neurologic: Alert and oriented, normal motor function, normal sensory function, no focal deficits noted. [] Psychologic: Affect abnormal, judgement normal, mood very anxious [] Current Patient Data: Labs: Laboratory Tests Test 09/11/19 12:30 09/11/19 12:53 09/11/19 13:10 Urine Collection Type Unknown Urine Color Yellow Urine Clarity Clear Urine pH 7.5 Urine Specific [place] 1.020 Urine Protein Neg Urine Glucose (UA) Neg mg/dL Urine Ketones (Stick) Neg mg/dL Urine Blood Neg Urine Nitrite Neg Urine Bilirubin Neg Urine Urobilinogen Dipstick 0.2 mg/dL Urine Leukocyte Esterase Neg Urine RBC 0 /HPF Urine WBC 0 /HPF Urine Squamous Epithelial Cells Few /LPF Urine Bacteria 0 /HPF Bedside Urine HCG, Qualitative hcg negative White Blood Count 5.0 x10^3/uL Red Blood Count 4.05 x10^6/uL Hemoglobin 12.6 g/dL Hematocrit 37.5 % Mean Corpuscular Volume 93 fL Mean Corpuscular Hemoglobin 31 pg Mean Corpuscular Hemoglobin Concent 34 g/dL Red Cell Distribution Width 13.0 % Platelet Count 282 x10^3/uL Neutrophils (%) (Auto) 58 % Lymphocytes (%) (Auto) 30 % Monocytes (%) (Auto) 9 % Eosinophils (%) (Auto) 2 % Basophils (%) (Auto) 1 % Neutrophils # (Auto) 2.9 x10^3uL Lymphocytes # (Auto) 1.5 x10^3/uL Monocytes # (Auto) 0.5 x10^3/uL Eosinophils # (Auto) 0.1 x10^3/uL Basophils # (Auto) 0.0 x10^3/uL Sodium Level 140 mmol/L Potassium Level 3.6 mmol/L Chloride Level 106 mmol/L Carbon Dioxide Level 27 mmol/L Anion Gap 7 Blood Urea Nitrogen 10 mg/dL Creatinine 0.8 mg/dL Estimated GFR (Cockcroft-Gault) 82.1 BUN/Creatinine Ratio 13 Glucose Level 102 mg/dL Calcium Level 8.5 mg/dL Total Bilirubin 0.3 mg/dL Aspartate Amino Transf (AST/SGOT) 17 U/L Alanine Aminotransferase (ALT/SGPT) 22 U/L Alkaline Phosphatase 68 U/L Total Protein 6.9 g/dL Albumin 3.9 g/dL Albumin/Globulin Ratio 1.3 Current Medications Medications (Trade) Dose Ordered Sig/[place]nee Route PRN Reason Start Time Stop Time Status Last Admin Dose Admin Ondansetron HCl (Zofran Odt) 4 mg 1X ONCE PO 09/11/19 12:15 09/11/19 12:16 DC Lorazepam (Ativan) 1 mg 1X ONCE PO 09/11/19 14:00 09/11/19 14:01 DC 09/11/19 14:03 Vital Signs: Vital Signs Date Time Temp Pulse Resp B/P (MAP) Pulse Ox O2 Delivery O2 Flow Rate FiO2 09/11/19 11:49 98.4 76 18 151/97 (115) 93 Room Air EKG: EKG: [] Radiology/Procedures: Radiology/Procedures: [address] [address] IMAGING REPORT Signed PATIENT: FRANCESCO WHITEHEAD ACCOUNT: [id number] : 1985 LOCATION: ER AGE: 33 SEX: F EXAM STATUS: PRE ER ORD. PHYSICIAN: PRANAV VELASCO DO REASON: chest pain, cough PROCEDURE: CHEST AP ONLY CHEST AP ONLY History: Chest pain, cough Comparison: June 20, 2018 Findings: Single view of the chest is submitted. There is no dependent pleural fluid, pneumothorax, or radiographically apparent infiltrate. Heart size is stable, within normal limits. Impression: 1. There is no radiographic evidence of acute cardiopulmonary disease. Electronically signed by: Polly Williamson MD (09/11/2019 12:34 PM) [id number] DICTATED AND SIGNED BY: POLLY WILLIAMSON MD DATE: 09/11/19 1234 CC: PRANAV VELASCO DO; ALISON MORRISON DO, MPH ~ [] Course & Med Decision Making: Course & Med Decision Making Pertinent Labs and Imaging studies reviewed. (See chart for details) 1405 patient very upset and yelling at staff and myself. I tried to reassure her and talk to her at length with nursing chaparone present. She asked me to leave the room so I complied. Patient was given an Ativan to help with her anxiety symptoms. I reassured her that we are waiting on completion of her medical work-up. She states that we do not understand her condition and that she is mourning the of her family member. 1419 patient wishes to leave AGAINST MEDICAL ADVICE. She does not wish any further treatment in this emergency department. She was advised that leaving against advice could result in or disability. Patient was lucid and able to answer basic questions verbally. Patient had been advised that she does need to quarantine until her COVID results are known or while she remains symptomatic. Patient told staff she does not want any additional medication for anxiety Dragon Disclaimer: Dragon Disclaimer: This electronic medical record was generated, in whole or in part, using a voice recognition dictation system. Departure Departure: Impression: Primary Impression: Anxiety Additional Impressions: Low grade fever Unknown status of immunity to COVID-19 virus Acute bronchitis Qualified Codes: J20.9 - Acute bronchitis, unspecified Disposition: 07 AGAINST MEDICAL ADVICE Condition: STABLE Referrals: ALISON MORRISON DO, [facility] (PCP) Patient Instructions: Acute Bronchitis, Anxiety and Panic Attacks Additional Instructions: You have been tested for or diagnosed with COVID-19. It is an infection caused by a new type of coronavirus. COVID-19 will cause cold-like or mild flu symptoms in most. It can cause more severe symptoms like problems breathing in some. There is no treatment for COVID-19. The body will clear the infection over time. Self-care will help to ease discomfort. Steps to Take: Self-Care Rest as needed. Healthy habits may help you feel better. Steps include: Choose healthy foods including fruits and vegetables. Drink water throughout the day. Get plenty of sleep each night. If you smoke, try to quit. It may ease breathing. Avoid alcohol. Keep Others Healthy The virus can spread to others. Droplets are released every time you sneeze or cough. The droplets can get into the mouth, nose, or eyes of people near you and lead to i nfection. To lower the chances of spreading COVID-19 to others: Stay at home until your doctor has said it is safe to leave. If you tested positive this will mean staying isolated until both of the following are true: At least 7 days have passed since the start of illness. You are free of fever for at least 72 hours without the use of medicine. During this time: - Avoid public areas, events, or transportation. Do not return to work or school until your doctor has said it is safe to do so. - Call ahead if you need to go to a medical center. Let them know you may have COVID-19. It will help them guide you where to go. They may also ask you to wear a facemask when you come to the office. - If you call for emergency medical services, let them know you may have COVID- 19. While at home: - Try to avoid close contact with others. Stay about 6 feet away. - If possible, spend most of your time in a separate room from others. - Use a face mask if you will be in close contact with others such as sharing a room or vehicle. - Have someone wipe down common surfaces in the home. Use household facilities mechanical design engineer every day on areas like doorknobs, counters, or sinks. - Cough or sneeze into a tissue. Throw the tissue away right after use. If a tissue is not available, cough or sneeze into your elbow. - Wash your hands often. Wash them after sneezing or coughing. Use soap and water and wash for at least 20 seconds. Alcohol based hand cleaner carpet and upholstery can be used if soap and water is not available. - Do not prepare food for others. Avoid sharing personal items like forks, spoons, or toothbrushes. - Avoid close contact with pets while you are sick. There is no evidence of the virus passing to pets. This is a safety step until more is known about this virus. Isolation can be frustrating. Social interaction can help. Keep in touch with friends and family through phone and tech options. You can still interact with others in your home, just keep a safe distance of about 6 feet. Follow-up: Your doctors office will check in with you to see if there are any changes in your health. You may be asked to keep track of symptoms to share with them. They will also let you know when you are clear to be in public again. Problems to Look Out For: Contact your doctor if your recovery is not going as you expect. Get emergency care if you have problems such as: - Trouble breathing - Nonstop chest pain or pressure - Changes in awareness, confusion, or problems waking - Lips or face have bluish color - Worsening of symptoms If you think you have an emergency, call for emergency medical services right away. As taken from [facility] Justification of Admission: Justification of Admission: Justification of Admission Dx: N/A COVID-19 Assessment COVID-19 Patient Risks: Age 65 or older: No Sign of co-morbidity: No Exp to person + for COVID: No Exp to PUI: No Travel from affected area: Yes Lower respiratory symptoms: Yes Fever: Yes Other: No PPE Use: Full PPE with N95 mask or PAPR: Yes PRANAV VELASCO DO Sep 11, 2019 12:41
[2019-09-11 13:25] LABS: BACTERIA,URINE 0 /HPF (0-FEW); BILIRUBIN,URINE NEG (NEG); CLARITY,URINE CLEAR; COLOR,URINE YELLOW; GLUCOSE,URINE NEG (NEG); NITRITE,URINE NEG (NEG); RBC,URINE 0 /HPF (0-2); UROBILINOGEN,URINE 0.2 mg/dL (0.2 mg/dL); WBC,URINE 0 /HPF (0-4)
[2019-09-11 13:26] LABS: SQUAMOUS EPITHELIAL CELL,UR FEW /LPF
[2019-09-11 13:30] LABS: BASO % 1 % (0-3); EOS # 0.1 x10^3/uL (0.0-0.7); EOS % 2 % (0-3); HEMATOCRIT 37.5 % (36.0-47.0); HEMOGLOBIN 12.6 g/dL (12.0-15.5); LYMPH # 1.5 x10^3/uL (1.0-4.8); LYMPH % 30 % (24-48); MEAN CORPUSCULAR HEMOGLOBIN 31 pg (25-35); MEAN CORPUSCULAR HGB CONC 34 g/dL (31-37); MEAN CORPUSCULAR VOLUME 93 fL (79-100); MONO # 0.5 x10^3/uL (0.0-1.1); MONO % 9 % (0-9); NEUT # 2.9 x10^3uL (1.8-7.7); NEUT % 58 % (31-73); PLATELET COUNT 282 x10^3/uL (140-400); RED BLOOD COUNT 4.05 x10^6/uL (3.50-5.40)
[2019-09-11 13:43] LABS: CALCIUM 8.5 mg/dL (8.5-10.1); CREATININE 0.8 mg/dL (0.6-1.0); GFR 82.1; POTASSIUM 3.6 mmol/L (3.5-5.1)
[2019-09-11 13:48] LABS: ALBUMIN 3.9 g/dL (3.4-5.0); ALBUMIN/GLOBULIN RATIO 1.3 (1.0-1.7); TOTAL BILIRUBIN 0.3 mg/dL (0.2-1.0); TOTAL PROTEIN 6.9 g/dL (6.4-8.2)
[2019-09-11] MEDS ORDERED: LORazepam 1 MG TABLET PO ONE (14:00)
[2019-09-11 14:30] VITALS: BP 129/86
[2019-09-12] MEDS ORDERED: PRED50TA PO (16:00)
[2019-09-12] MEDS ORDERED: AZIT250T PO (16:00)
[2019-09-12] MEDS ORDERED: ALPR0.5T PO (16:00)
== END 2019-09-11 14:30 | disposition left against medical advice (07) ==
LOC: ER 11:49
DX: U07.1 COVID-19 (principal); F41.9 Anxiety disorder, unspecified; J20.9 Acute bronchitis, unspecified; F32.9 Major depressive disorder, single episode, unspecified; G43.909 Migraine, unspecified, not intractable, without status migrainosus; Z87.891 Personal history of nicotine dependence; Z88.2 Allergy status to sulfonamides; Z88.1 Allergy status to other antibiotic agents; Z88.5 Allergy status to narcotic agent; Z88.6 Allergy status to analgesic agent
CPT/HCPCS: 36415; 71045; 80053; 81001; 81025; 85025; 99285; C9803; U0003

== ENCOUNTER 2019-09-12 12:59 | Emergency (ER) | payer OTHER ==
[~2019-09-12] VITALS: Ht 165.1 cm; Wt 87.9 kg
[2019-09-12] MEDS ORDERED: LIDO:MAALOX 1:1 20 ML SINGLE DOSE. PO ONE (13:45)
[2019-09-12] MEDS ORDERED: ALPRAZolam 0.25 MG TABLET PO ONE ×2 (13:45→15:15)
[2019-09-12] MEDS ORDERED: DEXAMETHASONE SOD PHOS 10 MG/ML VIAL. IV ONE (13:45)
[2019-09-12] MEDS ORDERED: KETOROLAC 30 MG/ML VIAL. IVP ONE (13:45)
--- NOTE | 2019-09-12 13:52 | RAD ---
Single view chest dated 09/12/2019: Comparison made 09/11/2019 Clinical Indication: Chest pain. Findings: Single upright portable exam of the chest was performed. Heart size and mediastinal contours are within normal limits given technique. The lungs are clear without evidence of focal consolidation. Vascular interstitium is within normal limits. Impression:: No acute radiographic abnormality. Electronically signed by: Lincoln Mendiola MD (09/12/2019 1:49 PM) IRINEO
[2019-09-12] MEDS ORDERED: IOHEXOL 350 MG/ML 100 ML VIAL. IV ONE (15:15)
--- NOTE | 2019-09-12 15:45 | RAD ---
Chest CTA History: Shortness of breath, elevated d-dimer, chest pain Technique: After bolus of intravenous contrast, CT imaging was performed of the chest. Multiplanar reconstruction images to include MIP reconstruction images are submitted. Exposure: One or more of the following individualized dose reduction techniques were utilized for this examination: 1. Automated exposure control 2. Adjustment of the mA and/or kV according to patient size 3. Use of iterative reconstruction technique. Comparison: April 20, [address] Findings: There is suboptimal contrast opacification of the more distal and smaller pulmonary arteries and there is some motion degradation. No central pulmonary embolism is identified. There is no pericardial or pleural fluid or pneumothorax. There is no lobar infiltrate. Major airways are patent. Heart is borderline in size. Thoracic aortic caliber is within normal limits, no dissection flap. No significantly enlarged nodes are identified of the chest. Impression: 1. No central pulmonary embolism is identified, limited evaluation of the small more distal branches on this exam. There is no infiltrate. 2. Heart size is borderline. Electronically signed by: Robby Madden MD (09/12/2019 3:42 PM) [id number]
[2019-09-12 16:00] VITALS: BP 106/72
[2019-09-12] MEDS ORDERED: ALPR0.5T PO (16:00)
[2019-09-12] MEDS ORDERED: PRED50TA PO (16:00)
[2019-09-12] MEDS ORDERED: AZIT250T PO (16:00)
--- NOTE | 2019-09-12 16:00 | PHYS DOC ---
Past History Past Medical History: Anxiety, Depression, Migraines Past Surgical History: Cholecystectomy, Hysterectomy, Oophorectomy, Other Additional Past Surgical Histo: left breast surgery x7; dental Smoking: Non-smoker, Quit Less Than 1 Year Alcohol Use: Occasionally Drug Use: None Adult General Chief Complaint Chief Complaint: HEADACHE HPI HPI Patient is a [age] year old [sex] who presents with [] Review of Systems Review of Systems Constitutional: Denies fever or chills [] Eyes: Denies change in visual acuity, redness, or eye pain [] HENT: Denies nasal congestion or sore throat [] Respiratory: Denies cough or shortness of breath [] Cardiovascular: No additional information not addressed in HPI [] GI: Denies abdominal pain, nausea, vomiting, bloody stools or diarrhea [] : Denies dysuria or hematuria [] Musculoskeletal: Denies back pain or joint pain [] Integument: Denies rash or skin lesions [] Neurologic: Denies headache, focal weakness or sensory changes [] Endocrine: Denies polyuria or polydipsia [] All other systems were reviewed and found to be within normal limits, except as documented in this note. Current Medications Current Medications Current Medications Medications (Trade) Dose Ordered Sig/[place] Start Time Stop Time Status Last Admin Dose Admin Alprazolam (Xanax) 0.5 mg 1X ONCE 09/12/19 15:15 09/12/19 15:16 DC 09/12/19 15:30 0.5 MG Dexamethasone Sodium Phosphate (Decadron) 10 mg 1X ONCE 09/12/19 13:45 09/12/19 13:46 DC 09/12/19 14:06 10 MG Iohexol (Omnipaque 350 Mg/ml) 100 ml 1X ONCE 09/12/19 15:15 09/12/19 15:16 DC 09/12/19 15:16 100 ML Ketorolac Tromethamine (Toradol 30mg Vial) 30 mg 1X ONCE 09/12/19 13:45 09/12/19 13:46 DC 09/12/19 14:04 30 MG Multi-Ingredient Mouthwash/Gargle (Gi Cocktail) 20 ml 1X ONCE 09/12/19 13:45 09/12/19 13:46 DC 09/12/19 14:11 20 ML Allergies Allergies Allergies Coded Allergies Type Severity Reaction Last Updated Verified Sulfa (Sulfonamide Antibiotics) Allergy Severe Anaphylaxis 09/11/19 Yes sulfamethoxazole Allergy Severe Anaphylaxis 09/11/19 Yes trimethoprim Allergy Severe Anaphylaxis 09/11/19 Yes Physical Exam Physical Exam Constitutional: Well developed, well nourished, no acute distress, non-toxic appearance. [] HENT: Normocephalic, atraumatic, bilateral external ears normal, oropharynx moist, no oral exudates, nose normal. [] Eyes: PERRLA, EOMI, conjunctiva normal, no discharge. [] Neck: Normal range of motion, no tenderness, supple, no stridor. [] Cardiovascular:Heart rate regular rhythm, no murmur [] Lungs & Thorax: Bilateral breath sounds clear to auscultation [] Abdomen: Bowel sounds normal, soft, no tenderness, no masses, no pulsatile masses. [] Skin: Warm, dry, no erythema, no rash. [] Back: No tenderness, no CVA tenderness. [] Extremities: No tenderness, no cyanosis, no clubbing, ROM intact, no edema. [] Neurologic: Alert and oriented X 3, normal motor function, normal sensory function, no focal deficits noted. [] Psychologic: Affect normal, judgement normal, mood normal. [] Current Patient Data Vital Signs Vital Signs Date Time Temp Pulse Resp B/P (MAP) Pulse Ox O2 Delivery O2 Flow Rate FiO2 09/12/19 14:06 80 20 125/84 (98) 97 Room Air 09/12/19 13:15 97.3 Lab Results Laboratory Tests Test 09/12/19 13:53 D-Dimer (Fidelina) 0.55 mg/L (0.00-0.50) H Troponin I Quantitative < 0.017 ng/mL (0-0.055) IC-Zny-O-Type Natriuretic Peptide 89 pg/mL (0-124) EKG EKG [] Radiology/Procedures Radiology/Procedures [] Course & Med Decision Making Course & Med Decision Making Pertinent Labs and Imaging studies reviewed. (See chart for details) [] Dragon Disclaimer Dragon Disclaimer This electronic medical record was generated, in whole or in part, using a voice recognition dictation system. Departure Departure: Impression: Primary Impression: Migraine Additional Impressions: GERD (gastroesophageal reflux disease) Chest pain Disposition: 01 HOME/RESIDENCE PRIOR TO ADM Condition: STABLE Referrals: EARNESTINE CAVANAUGH APRN (PCP) Patient Instructions: Acute Bronchitis, [id number] Additional Instructions: Thank you for visiting [facility]. We appreciate you trusting us with your care. If any additional problems come up please don't hesitate to return to visit us. Follow up with your primary care provider so they can plan additional care if needed and know about the problem that you had today. If symptoms worsen come back to the Emergency Department. Any concerning symptoms that start such as chest pain, shortness of air, weakness or numbness on one side of the body, running high fevers or any other concerning symptoms return to the ER. You have a viral syndrome which may include symptoms like muscle aches, fevers, chills, runny nose, cough, sneezing, sore throat, nausea, vomiting, or diarrhea. One of the potential viruses that you may have is SARS-CoV-2, the virus that causes COVID-19, also known as the Coronavirus. You are just as likely to have a different viral infection such as the common cold, flu, etc. Most patients with the Coronavirus have mild symptoms and recover on their own. Resting, staying hydrated, and sleep based on known cases can be helpful. As of todays visit, you are well enough to go home and treat your symptoms with oral fluids and over the counter medications. Coronavirus testing is not performed on most people with mild symptoms who are being discharged from the emergency department. If Coronavirus testing was performed today the results will not be available for possibly up to 3-4 days. If your result is positive you will be contacted. Please follow the following precautions at home: 1. Stay home except to get medical care. 2. As advised by the CDC, we recommend that you stay in your home and minimize contact with other people. We do not want you to spread the infection. 3. Those who are older or have significant medical issues may have more severe symptoms from this infection. We recommend self-isolation FOR AT LEAST 7 DAYS after your 1st day of symptoms. AFTER you feel better please wait AT LEAST ANOTHER WEEK before returning to regular activities and being around other people. 4. IF you become sicker and have difficulty breathing, chest pain, are unable to eat/drink, severe vomiting, diarrhea, or weakness you may need to return to the Emergency Department. 5. You should restrict activities outside of your home, except for getting medical care. DO NOT go to work, school, or public areas. Avoid using public transportation, ride sharing, or taxis. 6. Separate yourself from other people in your home. You should use a separate bathroom if possible. 7. Avoid sharing personal household items such as dishes, cups, eating utensils, towels, etc. 8. Clean all high touch surfaces every day (door knobs, counter tops, etc). Use a household cleaning spray or wipe per label instructions. 9. Clean your hands often. Wash your hands with soap and water for at least 20 seconds. 10. Cover your mouth and nose when you cough or sneeze. 11. Throw used tissues in the trash and immediately wash your hands. For additional resources please visit the CDC website or the [facility] ([phone]), you may also call 211 for further information. Scripts Prednisone (PREDNISONE) 50 Mg Tablet 1 TAB PO DAILY for sob, #5 TAB You received this medication in the emergency room today. You will starting your next dose tomorrow. Prov: NETO PEARCE MD 09/12/19 Alprazolam (XANAX) 0.5 Mg Tablet 1 TAB PO BID PRN for ANXIETY for 5 Days, #10 TAB Prov: NETO PEARCE MD 09/12/19 Azithromycin (ZITHROMAX) 250 Mg Tablet 1 PKG PO UD for bronchitis, #6 TAB Prov: NETO PEARCE MD 09/12/19 Justification of Admission: Justification of Admission: Justification of Admission Dx: No Problem Qualifiers NETO PEARCE MD Sep 12, 2019 16:00
== END 2019-09-12 16:10 | disposition home or self-care (01) ==
LOC: ER 12:59
DX: G43.909 Migraine, unspecified, not intractable, without status migrainosus (principal); K21.9 Gastro-esophageal reflux disease without esophagitis; R07.89 Other chest pain; Z87.891 Personal history of nicotine dependence; Z88.2 Allergy status to sulfonamides; Z88.1 Allergy status to other antibiotic agents
CPT/HCPCS: 36415; 71045; 71275; 83880; 84484; 85379; 96374; 96375; 99285; J1100; J1885; Q9967